=== PATIENT | female | born 1990 | race Caucasian/White ===

== ENCOUNTER 2017-08-31 11:21 | Emergency (ER) | payer OTHER, SELFPAY ==
[2017-08-31 11:28] VITALS: BP 156/103; PULSE 80; RESP 16; TEMP 37.4; O2SAT 98; BMI 40.7
[2017-08-31] MEDS: ONDANSETRON 4 MG/2 ML INJ IV (12:16)
[2017-08-31 12:24] LABS: Add Manual Diff / Slide Review NO; Basophils Percent Auto 1.1 % (0-2); Eosinophils Percent Auto 1.1 % (2-4); Hematocrit 40.2 % (36-46); Hemoglobin 14.2 g/dL (12.0-16.0); Lymphocytes Percent Auto 29.4 % (25-40); Mean Corpuscular HGB Conc 35.3 % (30-36); Mean Corpuscular Hemoglobin 29.5 PG (26-34); Mean Corpuscular Volume 83.5 fL (80-100); Monocytes Percent Auto 4.9 % (3-14); Neutrophils Absolute Auto 5000 /uL (3000-5900); Neutrophils Percent Auto 63.5 % (50-75); Platelet Count 272 X10^3/uL (150-400); Red Blood Cell Count 4.82 X10^6/uL (4.0-5.2); Red Cell Distribution Width 12.6 % (11.6-14.8); White Blood Cell Count 7.9 X10^3/uL (4.5-11.0)
[2017-08-31 12:28] LABS: Bacteria Urine Many (>30); Culture Indicated Urine Cult Not Indicated; Squamous Epithelial Cell Urine 10-30 /HPF
[2017-08-31 12:28] LABS: PTT Partial Thromboplastin Tim 27 SECONDS (26.4-36.2)
[2017-08-31 12:30] LABS: Alanine Aminotransferase 82 IU/L (9-52); Albumin 4.4 g/dL (3.5-5.0); Albumin Globulin Ratio 1.3 (1.0-2.8); Alkaline Phosphatase 84 U/L (38-126); Aspartate Aminotransferase 101 IU/L (14-36); BUN Creatinine Ratio 11.7 (6-22); Bilirubin Total 0.5 mg/dL (0.2-1.3); Calcium 9.5 mg/dL (8.4-10.2); Estimated Glomerular Filt Rate > 60.0 mL/min (>60); Globulin 3.5 g/dL (1.7-4.1); Glucose 117 mg/dL (70-100); INR 1.1 (0.9-1.3); Potassium 3.9 mmol/L (3.4-5.1); Prothrombin Time 11.8 SECONDS (10.1-12.7); Sodium 139 mmol/L (137-145); Total Protein 7.9 g/dL (6.3-8.2)
[2017-08-31 12:36] LABS: HEMOLYSIS < 15 (0-50); Lipase 180 U/L (23-300)
[2017-08-31 12:37] VITALS: BP 151/103; PULSE 68; RESP 17; O2SAT 97
--- NOTE | 2017-08-31 12:41 | ED.ABDPAIN ---
HPI - Abdominal Pain <Nicolasa Aguirre PA-C - Last Filed: 08/31/17 21:03> General Chief Complaint: Abdominal Pain Stated Complaint: LEFT SIDED BACK AND ABDOMINAL PAIN Time Seen by Provider: 08/31/17 11:45 Source: patient Mode of arrival: ambulatory Limitations: no limitations History of Present Illness HPI narrative: This 26-year-old female states that she has had left-sided back pain for about a week. She states that she has some chronic back pain after childbirth and thought this was similar, but saw her chiropractor and not better. She states that the pain started throbbing more today and seems to radiate into her left flank and abdominal area, like previous gallbladder attacks but on the left side. She states that pain waxes and wanes, might be worse moving from sit to supine or vice versa, cannot think of any other exacerbating or alleviating features. She has had nausea in the morning for the last few days, but today is more persistent. She states she has had poor appetite due to the nausea. She has not had any vomiting. She has not had any known fever, but has had some chills at home. She states that she also feels bloated and has some acid sensation in her stomach. She states that she has diarrhea after eating since her cholecystectomy. She states that last week she had 1 episode of some blood in the stools after it was painful to stool, but has not had any since this started. No mucus in the stools. She denies any hematuria or urinary symptoms. She denies any chest pain or dyspnea. She denies any recent medication changes, antibiotics, foreign travel or known exposures. She denies any possibility of , states she has an IUD in place and is compliant with OCP Related Data Previous Rx's Medication Instructions Recorded copper [ParaGard T 380A] 1 ea VAGINAL X1 #1 ea 09/23/16 sumatriptan succinate 50 mg PO SEE INSTRUCTIONS #18 tab 05/27/17 norethindrone (contraceptive) 0.35 mg PO QDAY #1 pac 08/03/17 [Ortho Micronor] cyclobenzaprine 10 mg PO Q8H PRN #10 tab 08/31/17 ondansetron [Zofran ODT] 4 mg PO Q6H PRN #6 tab 08/31/17 Allergies Allergy/AdvReac Type Severity Reaction Status Date / Time hydrocodone [HYDROCODONE] Allergy Severe EMESIS/LETH Verified 09/01/17 13:29 ARGY Review of Systems <Nicolasa Aguirre PA-C - Last Filed: 08/31/17 21:03> Review of Systems All systems reviewed & are unremarkable except as noted in HPI and below Exam <Nicolasa Aguirre PA-C - Last Filed: 08/31/17 21:03> Narrative Exam Narrative: GENERAL APPEARANCE: Patient sitting comfortably, in no distress. HEENT: PERRL, EOMI, conjunctiva pink, no scleral icterus NECK: Supple LUNGS: Clear to auscultation bilaterally. HEART: Rate and rhythm regular, normal S1 and S2, no S3 or S4. ABDOMEN: Soft, obese, nondistended, bowel sounds present x 4 quadrants, no masses palpable, no hepatosplenomegaly. She has no CVAT. She has moderate tenderness over the mid epigastrium left lower quadrant, more laterally, without guarding or rebound EXTREMITIES: No edema, no cyanosis MS: No point tenderness over spine or thoracolumbar musculature. Tender with moving from supine to sit DERMATOLOGIC: No jaundice or exanthem NEUROLOGIC: Alert and oriented with normal speech and coordination Course <Nicolasa Aguirre PA-C - Last Filed: 08/31/17 21:03> Hospital Course: Patient did not have any vomiting while here. She did have some improvement in pain and was moving more comfortably prior to discharge. She stated this was very tolerable. I spoke with her PCP and arranged close follow-up for tomorrow with repeat lab work prior. Patient agreed to return if acutely worsening again in the interim Orders Ordered: Discontinued Medications Al Hydrox/Mg Hydrox/Simethicone 20 ml/ Lidocaine HCl 15 ml 0 ml PO NOW ONE Stop: 08/31/17 12:55 Last Admin: 08/31/17 13:18 Dose: 35 ml Ketorolac Tromethamine (Toradol) 30 mg IV NOW ONE Stop: 08/31/17 12:55 Last Admin: 08/31/17 13:12 Dose: 30 mg Ondansetron HCl (Zofran) 4 mg IV NOW ONE Stop: 08/31/17 12:14 Last Admin: 08/31/17 12:16 Dose: 4 mg Last Vital Signs Temp 99.4 F 08/31/17 11:28 Pulse 74 08/31/17 14:31 Resp 18 08/31/17 14:31 BP 140/102 H 08/31/17 14:31 Pulse Ox 95 08/31/17 14:31 <Gustabo De Luna DO - Last Filed: 09/04/17 07:09> Orders Ordered: Discontinued Medications Al Hydrox/Mg Hydrox/Simethicone 20 ml/ Lidocaine HCl 15 ml 0 ml PO NOW ONE Stop: 08/31/17 12:55 Last Admin: 08/31/17 13:18 Dose: 35 ml Ketorolac Tromethamine (Toradol) 30 mg IV NOW ONE Stop: 08/31/17 12:55 Last Admin: 08/31/17 13:12 Dose: 30 mg Ondansetron HCl (Zofran) 4 mg IV NOW ONE Stop: 08/31/17 12:14 Last Admin: 08/31/17 12:16 Dose: 4 mg Last Vital Signs Temp 99.4 F 08/31/17 11:28 Pulse 74 08/31/17 14:31 Resp 18 08/31/17 14:31 BP 140/102 H 08/31/17 14:31 Pulse Ox 95 08/31/17 14:31 MDM - Abdominal Pain <Nicolasa Aguirre PA-C - Last Filed: 08/31/17 21:03> Lab Data Attestation: I reviewed the patient's lab results. Result diagrams: 08/31/17 12:11 08/31/17 12:11 Lab Results 08/31/17 08/31/17 08/31/17 Range/Units 12:11 12:11 12:11 WBC 7.9 (4.5-11.0) X10^3/uL RBC 4.82 (4.0-5.2) X10^6/uL Hgb 14.2 (12.0-16.0) g/dL Hct 40.2 (36-46) % MCV 83.5 (80-100) fL MCH 29.5 (26-34) PG MCHC 35.3 (30-36) % RDW 12.6 (11.6-14.8) % Plt Count 272 (150-400) X10^3/uL Neut % (Auto) 63.5 (50-75) % Lymph % (Auto) 29.4 (25-40) % Randolph % (Auto) 4.9 (3-14) % Eos % (Auto) 1.1 L (2-4) % Baso % (Auto) 1.1 (0-2) % Neut # (Auto) 5000 (8849-9311) /uL PT 11.8 (10.1-12.7) SECONDS INR 1.1 (0.9-1.3) APTT 27 (26.4-36.2) SECONDS Sodium 139 (137-145) mmol/L Potassium 3.9 (3.4-5.1) mmol/L Chloride 102.0 (98-107) mmol/L Carbon Dioxide 24.0 (22-32) mmol/L BUN 7.0 (7-17) mg/dL Creatinine 0.60 (0.52-1.04) mg/dL Estimated GFR > 60.0 (>60) mL/min BUN/Creatinine Ratio 11.7 (6-22) Glucose 117 H (70-100) mg/dL Calcium 9.5 (8.4-10.2) mg/dL Total Bilirubin 0.5 (0.2-1.3) mg/dL AST 101 H (14-36) IU/L ALT 82 H (9-52) IU/L Alkaline Phosphatase 84 (38-126) U/L Total Protein 7.9 (6.3-8.2) g/dL Albumin 4.4 (3.5-5.0) g/dL Globulin 3.5 (1.7-4.1) g/dL Albumin/Globulin Ratio 1.3 (1.0-2.8) Lipase 180 (23-300) U/L Ur Squamous Epith Cells Urine Bacteria (None) Ur Culture Indicated? Micro UA Comment 08/31/17 Range/Units 12:18 WBC (4.5-11.0) X10^3/uL RBC (4.0-5.2) X10^6/uL Hgb (12.0-16.0) g/dL Hct (36-46) % MCV (80-100) fL MCH (26-34) PG MCHC (30-36) % RDW (11.6-14.8) % Plt Count (150-400) X10^3/uL Neut % (Auto) (50-75) % Lymph % (Auto) (25-40) % Randolph % (Auto) (3-14) % Eos % (Auto) (2-4) % Baso % (Auto) (0-2) % Neut # (Auto) (9484-9705) /uL PT (10.1-12.7) SECONDS INR (0.9-1.3) APTT (26.4-36.2) SECONDS Sodium (137-145) mmol/L Potassium (3.4-5.1) mmol/L Chloride (98-107) mmol/L Carbon Dioxide (22-32) mmol/L BUN (7-17) mg/dL Creatinine (0.52-1.04) mg/dL Estimated GFR (>60) mL/min BUN/Creatinine Ratio (6-22) Glucose (70-100) mg/dL Calcium (8.4-10.2) mg/dL Total Bilirubin (0.2-1.3) mg/dL AST (14-36) IU/L ALT (9-52) IU/L Alkaline Phosphatase (38-126) U/L Total Protein (6.3-8.2) g/dL Albumin (3.5-5.0) g/dL Globulin (1.7-4.1) g/dL Albumin/Globulin Ratio (1.0-2.8) Lipase (23-300) U/L Ur Squamous Epith Cells 10-30 /hpf H Urine Bacteria Many (>30) H (None) Ur Culture Indicated? Cult not indicated Micro UA Comment Not Reportable Imaging Data CT scan - abdomen: Radiologist's impression: View Report History [address] [address] [address] Scan Report Signed Patient: Sherine Wolf MR#: [id number] : 1990 Acct:[id number] Age/Sex: 26 / F Date of Service: 08/31/17 Loc: ED Accession Number: [id number] Procedure: CT kidney ureter bladder (KUB) Ordering Provider: Nicolasa Aguirre P.A-C PROCEDURE: CT KIDNEY URETER BLADDER (KUB) INDICATIONS: L. flank, LQ pain TECHNIQUE: Noncontrast 5 mm thick sections acquired from the diaphragms to the symphysis. 5 mm thick coronal and sagittal reformats were then performed. For radiation dose reduction, the following was used: automated exposure control, adjustment of mA and/or kV according to patient size. COMPARISON: [facility], CT, ABDOMEN/PELVIS WITH CONTRAST, 02/24/2017, 11:54. FINDINGS: Image quality: Excellent. Lung bases: Lung bases are clear. Heart size is normal. Urinary system: Both kidneys are normal in size. No kidney stones. No hydronephrosis or perinephric fat stranding. Both ureters appear non-dilated throughout their expected courses. Bladder wall thickness is normal; no calcified bladder stones. Other solid organs: Liver is enlarged, and demonstrates diffusely decreased density, indicating fatty infiltration. An intrauterine device is present.. Gallbladder is surgically absent. Pancreas is normal in contours. Spleen is normal in size. No adrenal nodules. Peritoneum and bowel: Unenhanced bowel loops demonstrate normal wall thickness and caliber. No free fluid or air. Appendectomy clips are present. Nodes and vessels: No retroperitoneal or mesenteric adenopathy by size criteria. Aorta and inferior vena cava are normal in caliber. Abdominal wall: No ventral hernias. Pelvis: No free pelvic fluid. No inguinal hernias or adenopathy. Bones: No suspicious bony lesions. No vertebral body compression fractures. IMPRESSION: 1. No evidence of urinary tract calcification, nor obstruction. 2. No explanation for left flank, nor left lower quadrant pain. 3. Hepatic steatosis. Dictated by: Juanis Carmona M.D. on 08/31/2017 at 13:33 Approved by: Juanis Carmona M.D. on 08/31/2017 at 13:36 <Gustabo De Luna DO - Last Filed: 09/04/17 07:09> Lab Data Lab Results 08/31/17 08/31/17 08/31/17 Range/Units 12:11 12:11 12:11 WBC 7.9 (4.5-11.0) X10^3/uL RBC 4.82 (4.0-5.2) X10^6/uL Hgb 14.2 (12.0-16.0) g/dL Hct 40.2 (36-46) % MCV 83.5 (80-100) fL MCH 29.5 (26-34) PG MCHC 35.3 (30-36) % RDW 12.6 (11.6-14.8) % Plt Count 272 (150-400) X10^3/uL Neut % (Auto) 63.5 (50-75) % Lymph % (Auto) 29.4 (25-40) % Randolph % (Auto) 4.9 (3-14) % Eos % (Auto) 1.1 L (2-4) % Baso % (Auto) 1.1 (0-2) % Neut # (Auto) 5000 (2368-0112) /uL PT 11.8 (10.1-12.7) SECONDS INR 1.1 (0.9-1.3) APTT 27 (26.4-36.2) SECONDS Sodium 139 (137-145) mmol/L Potassium 3.9 (3.4-5.1) mmol/L Chloride 102.0 (98-107) mmol/L Carbon Dioxide 24.0 (22-32) mmol/L BUN 7.0 (7-17) mg/dL Creatinine 0.60 (0.52-1.04) mg/dL Estimated GFR > 60.0 (>60) mL/min BUN/Creatinine Ratio 11.7 (6-22) Glucose 117 H (70-100) mg/dL Calcium 9.5 (8.4-10.2) mg/dL Total Bilirubin 0.5 (0.2-1.3) mg/dL AST 101 H (14-36) IU/L ALT 82 H (9-52) IU/L Alkaline Phosphatase 84 (38-126) U/L Total Protein 7.9 (6.3-8.2) g/dL Albumin 4.4 (3.5-5.0) g/dL Globulin 3.5 (1.7-4.1) g/dL Albumin/Globulin Ratio 1.3 (1.0-2.8) Lipase 180 (23-300) U/L Ur Squamous Epith Cells Urine Bacteria (None) Ur Culture Indicated? Micro UA Comment 08/31/17 Range/Units 12:18 WBC (4.5-11.0) X10^3/uL RBC (4.0-5.2) X10^6/uL Hgb (12.0-16.0) g/dL Hct (36-46) % MCV (80-100) fL MCH (26-34) PG MCHC (30-36) % RDW (11.6-14.8) % Plt Count (150-400) X10^3/uL Neut % (Auto) (50-75) % Lymph % (Auto) (25-40) % Randolph % (Auto) (3-14) % Eos % (Auto) (2-4) % Baso % (Auto) (0-2) % Neut # (Auto) (0160-1072) /uL PT (10.1-12.7) SECONDS INR (0.9-1.3) APTT (26.4-36.2) SECONDS Sodium (137-145) mmol/L Potassium (3.4-5.1) mmol/L Chloride (98-107) mmol/L Carbon Dioxide (22-32) mmol/L BUN (7-17) mg/dL Creatinine (0.52-1.04) mg/dL Estimated GFR (>60) mL/min BUN/Creatinine Ratio (6-22) Glucose (70-100) mg/dL Calcium (8.4-10.2) mg/dL Total Bilirubin (0.2-1.3) mg/dL AST (14-36) IU/L ALT (9-52) IU/L Alkaline Phosphatase (38-126) U/L Total Protein (6.3-8.2) g/dL Albumin (3.5-5.0) g/dL Globulin (1.7-4.1) g/dL Albumin/Globulin Ratio (1.0-2.8) Lipase (23-300) U/L Ur Squamous Epith Cells 10-30 /hpf H Urine Bacteria Many (>30) H (None) Ur Culture Indicated? Cult not indicated Micro UA Comment Not Reportable Discharge Plan Departure Patient Disposition: Home, Self-Care Clinical Impression: Acute left flank pain, Abdominal pain, Nausea Discharge Date/Time: 08/31/17 14:33 Interventions: ED Discharge Assessment Last Done: 08/31/17 14:31 Instructions: DI for Abdominal Pain-Adult Activity Restrictions/Additional Instructions: Is unclear whether your pain is generated from your back, your abdomen or both. Since you are feeling a little bit better and does not appear that there is a surgical issue based on your testing today, it is reasonable for you to monitor at home, however as we talked about you should return if any acutely worsening symptoms. It is important to monitor abdominal pain closely and you should follow up at your PCP office tomorrow. They have asked that you check into the lab at 1 hour early tomorrow for repeat labwork, then be at the clinic at 1:30 for your appointment I have given you a medication to try for muscle spasms since your pain waxes and wanes. Remember that this can make you sleepy and not to drive. you can also use over the counter NSAIDs, such as aleve 1 tab twice daily. For your nausea, bloating, and heartburn, try to eat very small amounts of food more frequently, i.e. yogurt, a piece of fruit, a few crackers every couple of hours rather than eating large meals. Drink plenty of clear fluids. You can use a liquid antacid such as Maalox or Mylanta as needed. I have given you a prescription for a little bit of the antinausea medicine you had in the IV as well today in case you need it tonight Prescriptions: New cyclobenzaprine 10 mg tablet 10 mg PO Q8H PRN (Reason: muscle spasm) Qty: 10 RF: 0 ondansetron [Zofran ODT] 4 mg tablet,disintegrating 4 mg PO Q6H PRN (Reason: nausea) Qty: 6 RF: 0 No Action copper [ParaGard T 380A] 1 EACH intrauterine device 1 ea Vaginal X1 Qty: 1 RF: 0 sumatriptan succinate 50 MG tablet 50 mg PO SEE INSTRUCTIONS Qty: 18 RF: 3 norethindrone (contraceptive) [Ortho Micronor] 0.35 MG tablet 0.35 mg PO QDAY Qty: 1 RF: 6 Referrals: Devorah Galarza MD [Primary Care Provider] - <Gustabo De Luna DO - Last Filed: 09/04/17 07:09> Cosign ED Attending Guillermoature Attestation: I was available for consultation during this patient's emergency department encounter
--- NOTE | 2017-08-31 13:06 | ED_ITS ---
HPI - Abdominal Pain <Nicolasa Aguirre PA-C - Last Filed: 08/31/17 21:03> General Chief Complaint: Abdominal Pain Stated Complaint: LEFT SIDED BACK AND ABDOMINAL PAIN Time Seen by Provider: 08/31/17 11:45 Source: patient Mode of arrival: ambulatory Limitations: no limitations History of Present Illness HPI narrative: This 26-year-old female states that she has had left-sided back pain for about a week. She states that she has some chronic back pain after childbirth and thought this was similar, but saw her chiropractor and not better. She states that the pain started throbbing more today and seems to radiate into her left flank and abdominal area, like previous gallbladder attacks but on the left side. She states that pain waxes and wanes, might be worse moving from sit to supine or vice versa, cannot think of any other exacerbating or alleviating features. She has had nausea in the morning for the last few days, but today is more persistent. She states she has had poor appetite due to the nausea. She has not had any vomiting. She has not had any known fever, but has had some chills at home. She states that she also feels bloated and has some acid sensation in her stomach. She states that she has diarrhea after eating since her cholecystectomy. She states that last week she had 1 episode of some blood in the stools after it was painful to stool, but has not had any since this started. No mucus in the stools. She denies any hematuria or urinary symptoms. She denies any chest pain or dyspnea. She denies any recent medication changes, antibiotics, foreign travel or known exposures. She denies any possibility of , states she has an IUD in place and is compliant with OCP Related Data Previous Rx's Medication Instructions Recorded copper [ParaGard T 380A] 1 ea VAGINAL X1 #1 ea 09/23/16 sumatriptan succinate 50 mg PO SEE INSTRUCTIONS #18 tab 05/27/17 norethindrone (contraceptive) 0.35 mg PO QDAY #1 pac 08/03/17 [Ortho Micronor] cyclobenzaprine 10 mg PO Q8H PRN #10 tab 08/31/17 ondansetron [Zofran ODT] 4 mg PO Q6H PRN #6 tab 08/31/17 Allergies Allergy/AdvReac Type Severity Reaction Status Date / Time hydrocodone [HYDROCODONE] Allergy Severe EMESIS/LETH Verified 09/01/17 13:29 ARGY Review of Systems <Nicolasa Aguirre PA-C - Last Filed: 08/31/17 21:03> Review of Systems All systems reviewed & are unremarkable except as noted in HPI and below Exam <Nicolasa Aguirre PA-C - Last Filed: 08/31/17 21:03> Narrative Exam Narrative: GENERAL APPEARANCE: Patient sitting comfortably, in no distress. HEENT: PERRL, EOMI, conjunctiva pink, no scleral icterus NECK: Supple LUNGS: Clear to auscultation bilaterally. HEART: Rate and rhythm regular, normal S1 and S2, no S3 or S4. ABDOMEN: Soft, obese, nondistended, bowel sounds present x 4 quadrants, no masses palpable, no hepatosplenomegaly. She has no CVAT. She has moderate tenderness over the mid epigastrium left lower quadrant, more laterally, without guarding or rebound EXTREMITIES: No edema, no cyanosis MS: No point tenderness over spine or thoracolumbar musculature. Tender with moving from supine to sit DERMATOLOGIC: No jaundice or exanthem NEUROLOGIC: Alert and oriented with normal speech and coordination Course <Nicolasa Aguirre PA-C - Last Filed: 08/31/17 21:03> Hospital Course: Patient did not have any vomiting while here. She did have some improvement in pain and was moving more comfortably prior to discharge. She stated this was very tolerable. I spoke with her PCP and arranged close follow-up for tomorrow with repeat lab work prior. Patient agreed to return if acutely worsening again in the interim Orders Ordered: Discontinued Medications Al Hydrox/Mg Hydrox/Simethicone 20 ml/ Lidocaine HCl 15 ml 0 ml PO NOW ONE Stop: 08/31/17 12:55 Last Admin: 08/31/17 13:18 Dose: 35 ml Ketorolac Tromethamine (Toradol) 30 mg IV NOW ONE Stop: 08/31/17 12:55 Last Admin: 08/31/17 13:12 Dose: 30 mg Ondansetron HCl (Zofran) 4 mg IV NOW ONE Stop: 08/31/17 12:14 Last Admin: 08/31/17 12:16 Dose: 4 mg Last Vital Signs Temp 99.4 F 08/31/17 11:28 Pulse 74 08/31/17 14:31 Resp 18 08/31/17 14:31 BP 140/102 H 08/31/17 14:31 Pulse Ox 95 08/31/17 14:31 <Gustabo De Luna DO - Last Filed: 09/04/17 07:09> Orders Ordered: Discontinued Medications Al Hydrox/Mg Hydrox/Simethicone 20 ml/ Lidocaine HCl 15 ml 0 ml PO NOW ONE Stop: 08/31/17 12:55 Last Admin: 08/31/17 13:18 Dose: 35 ml Ketorolac Tromethamine (Toradol) 30 mg IV NOW ONE Stop: 08/31/17 12:55 Last Admin: 08/31/17 13:12 Dose: 30 mg Ondansetron HCl (Zofran) 4 mg IV NOW ONE Stop: 08/31/17 12:14 Last Admin: 08/31/17 12:16 Dose: 4 mg Last Vital Signs Temp 99.4 F 08/31/17 11:28 Pulse 74 08/31/17 14:31 Resp 18 08/31/17 14:31 BP 140/102 H 08/31/17 14:31 Pulse Ox 95 08/31/17 14:31 MDM - Abdominal Pain <Nicolasa Aguirre PA-C - Last Filed: 08/31/17 21:03> Lab Data Attestation: I reviewed the patient's lab results. Result diagrams: 08/31/17 12:11 08/31/17 12:11 Lab Results 08/31/17 08/31/17 08/31/17 Range/Units 12:11 12:11 12:11 WBC 7.9 (4.5-11.0) X10^3/uL RBC 4.82 (4.0-5.2) X10^6/uL Hgb 14.2 (12.0-16.0) g/dL Hct 40.2 (36-46) % MCV 83.5 (80-100) fL MCH 29.5 (26-34) PG MCHC 35.3 (30-36) % RDW 12.6 (11.6-14.8) % Plt Count 272 (150-400) X10^3/uL Neut % (Auto) 63.5 (50-75) % Lymph % (Auto) 29.4 (25-40) % Carson % (Auto) 4.9 (3-14) % Eos % (Auto) 1.1 L (2-4) % Baso % (Auto) 1.1 (0-2) % Neut # (Auto) 5000 (1979-8730) /uL PT 11.8 (10.1-12.7) SECONDS INR 1.1 (0.9-1.3) APTT 27 (26.4-36.2) SECONDS Sodium 139 (137-145) mmol/L Potassium 3.9 (3.4-5.1) mmol/L Chloride 102.0 (98-107) mmol/L Carbon Dioxide 24.0 (22-32) mmol/L BUN 7.0 (7-17) mg/dL Creatinine 0.60 (0.52-1.04) mg/dL Estimated GFR > 60.0 (>60) mL/min BUN/Creatinine Ratio 11.7 (6-22) Glucose 117 H (70-100) mg/dL Calcium 9.5 (8.4-10.2) mg/dL Total Bilirubin 0.5 (0.2-1.3) mg/dL AST 101 H (14-36) IU/L ALT 82 H (9-52) IU/L Alkaline Phosphatase 84 (38-126) U/L Total Protein 7.9 (6.3-8.2) g/dL Albumin 4.4 (3.5-5.0) g/dL Globulin 3.5 (1.7-4.1) g/dL Albumin/Globulin Ratio 1.3 (1.0-2.8) Lipase 180 (23-300) U/L Ur Squamous Epith Cells Urine Bacteria (None) Ur Culture Indicated? Micro UA Comment 08/31/17 Range/Units 12:18 WBC (4.5-11.0) X10^3/uL RBC (4.0-5.2) X10^6/uL Hgb (12.0-16.0) g/dL Hct (36-46) % MCV (80-100) fL MCH (26-34) PG MCHC (30-36) % RDW (11.6-14.8) % Plt Count (150-400) X10^3/uL Neut % (Auto) (50-75) % Lymph % (Auto) (25-40) % Carson % (Auto) (3-14) % Eos % (Auto) (2-4) % Baso % (Auto) (0-2) % Neut # (Auto) (3638-1706) /uL PT (10.1-12.7) SECONDS INR (0.9-1.3) APTT (26.4-36.2) SECONDS Sodium (137-145) mmol/L Potassium (3.4-5.1) mmol/L Chloride (98-107) mmol/L Carbon Dioxide (22-32) mmol/L BUN (7-17) mg/dL Creatinine (0.52-1.04) mg/dL Estimated GFR (>60) mL/min BUN/Creatinine Ratio (6-22) Glucose (70-100) mg/dL Calcium (8.4-10.2) mg/dL Total Bilirubin (0.2-1.3) mg/dL AST (14-36) IU/L ALT (9-52) IU/L Alkaline Phosphatase (38-126) U/L Total Protein (6.3-8.2) g/dL Albumin (3.5-5.0) g/dL Globulin (1.7-4.1) g/dL Albumin/Globulin Ratio (1.0-2.8) Lipase (23-300) U/L Ur Squamous Epith Cells 10-30 /hpf H Urine Bacteria Many (>30) H (None) Ur Culture Indicated? Cult not indicated Micro UA Comment Not Reportable Imaging Data CT scan - abdomen: Radiologist's impression: View Report History [address] [address] [address] Scan Report Signed Patient: Sherine Wolf MR#: [id number] : 1990 Acct:[id number] Age/Sex: 26 / F Date of Service: 08/31/17 Loc: ED Accession Number: [id number] Procedure: CT kidney ureter bladder (KUB) Ordering Provider: Nicolasa Aguirre P.A-C PROCEDURE: CT KIDNEY URETER BLADDER (KUB) INDICATIONS: L. flank, LQ pain TECHNIQUE: Noncontrast 5 mm thick sections acquired from the diaphragms to the symphysis. 5 mm thick coronal and sagittal reformats were then performed. For radiation dose reduction, the following was used: automated exposure control, adjustment of mA and/or kV according to patient size. COMPARISON: [facility], CT, ABDOMEN/PELVIS WITH CONTRAST, 02/24/2017, 11: 54. FINDINGS: Image quality: Excellent. Lung bases: Lung bases are clear. Heart size is normal. Urinary system: Both kidneys are normal in size. No kidney stones. No hydronephrosis or perinephric fat stranding. Both ureters appear non-dilated throughout their expected courses. Bladder wall thickness is normal; no calcified bladder stones. Other solid organs: Liver is enlarged, and demonstrates diffusely decreased density, indicating fatty infiltration. An intrauterine device is present.. Gallbladder is surgically absent. Pancreas is normal in contours. Spleen is normal in size. No adrenal nodules. Peritoneum and bowel: Unenhanced bowel loops demonstrate normal wall thickness and caliber. No free fluid or air. Appendectomy clips are present. Nodes and vessels: No retroperitoneal or mesenteric adenopathy by size criteria. Aorta and inferior vena cava are normal in caliber. Abdominal wall: No ventral hernias. Pelvis: No free pelvic fluid. No inguinal hernias or adenopathy. Bones: No suspicious bony lesions. No vertebral body compression fractures. IMPRESSION: 1. No evidence of urinary tract calcification, nor obstruction. 2. No explanation for left flank, nor left lower quadrant pain. 3. Hepatic steatosis. Dictated by: Juanis Carmona M.D. on 08/31/2017 at 13:33 Approved by: Juanis Carmona M.D. on 08/31/2017 at 13:36 <Gustabo De Luna DO - Last Filed: 09/04/17 07:09> Lab Data Lab Results 08/31/17 08/31/17 08/31/17 Range/Units 12:11 12:11 12:11 WBC 7.9 (4.5-11.0) X10^3/uL RBC 4.82 (4.0-5.2) X10^6/uL Hgb 14.2 (12.0-16.0) g/dL Hct 40.2 (36-46) % MCV 83.5 (80-100) fL MCH 29.5 (26-34) PG MCHC 35.3 (30-36) % RDW 12.6 (11.6-14.8) % Plt Count 272 (150-400) X10^3/uL Neut % (Auto) 63.5 (50-75) % Lymph % (Auto) 29.4 (25-40) % Carson % (Auto) 4.9 (3-14) % Eos % (Auto) 1.1 L (2-4) % Baso % (Auto) 1.1 (0-2) % Neut # (Auto) 5000 (2859-9059) /uL PT 11.8 (10.1-12.7) SECONDS INR 1.1 (0.9-1.3) APTT 27 (26.4-36.2) SECONDS Sodium 139 (137-145) mmol/L Potassium 3.9 (3.4-5.1) mmol/L Chloride 102.0 (98-107) mmol/L Carbon Dioxide 24.0 (22-32) mmol/L BUN 7.0 (7-17) mg/dL Creatinine 0.60 (0.52-1.04) mg/dL Estimated GFR > 60.0 (>60) mL/min BUN/Creatinine Ratio 11.7 (6-22) Glucose 117 H (70-100) mg/dL Calcium 9.5 (8.4-10.2) mg/dL Total Bilirubin 0.5 (0.2-1.3) mg/dL AST 101 H (14-36) IU/L ALT 82 H (9-52) IU/L Alkaline Phosphatase 84 (38-126) U/L Total Protein 7.9 (6.3-8.2) g/dL Albumin 4.4 (3.5-5.0) g/dL Globulin 3.5 (1.7-4.1) g/dL Albumin/Globulin Ratio 1.3 (1.0-2.8) Lipase 180 (23-300) U/L Ur Squamous Epith Cells Urine Bacteria (None) Ur Culture Indicated? Micro UA Comment 08/31/17 Range/Units 12:18 WBC (4.5-11.0) X10^3/uL RBC (4.0-5.2) X10^6/uL Hgb (12.0-16.0) g/dL Hct (36-46) % MCV (80-100) fL MCH (26-34) PG MCHC (30-36) % RDW (11.6-14.8) % Plt Count (150-400) X10^3/uL Neut % (Auto) (50-75) % Lymph % (Auto) (25-40) % Carson % (Auto) (3-14) % Eos % (Auto) (2-4) % Baso % (Auto) (0-2) % Neut # (Auto) (2901-7000) /uL PT (10.1-12.7) SECONDS INR (0.9-1.3) APTT (26.4-36.2) SECONDS Sodium (137-145) mmol/L Potassium (3.4-5.1) mmol/L Chloride (98-107) mmol/L Carbon Dioxide (22-32) mmol/L BUN (7-17) mg/dL Creatinine (0.52-1.04) mg/dL Estimated GFR (>60) mL/min BUN/Creatinine Ratio (6-22) Glucose (70-100) mg/dL Calcium (8.4-10.2) mg/dL Total Bilirubin (0.2-1.3) mg/dL AST (14-36) IU/L ALT (9-52) IU/L Alkaline Phosphatase (38-126) U/L Total Protein (6.3-8.2) g/dL Albumin (3.5-5.0) g/dL Globulin (1.7-4.1) g/dL Albumin/Globulin Ratio (1.0-2.8) Lipase (23-300) U/L Ur Squamous Epith Cells 10-30 /hpf H Urine Bacteria Many (>30) H (None) Ur Culture Indicated? Cult not indicated Micro UA Comment Not Reportable Discharge Plan Departure Patient Disposition: Home, Self-Care Clinical Impression: Acute left flank pain, Abdominal pain, Nausea Discharge Date/Time: 08/31/17 14:33 Interventions: ED Discharge Assessment Last Done: 08/31/17 14:31 Instructions: DI for Abdominal Pain-Adult Activity Restrictions/Additional Instructions: Is unclear whether your pain is generated from your back, your abdomen or both. Since you are feeling a little bit better and does not appear that there is a surgical issue based on your testing today, it is reasonable for you to monitor at home, however as we talked about you should return if any acutely worsening symptoms. It is important to monitor abdominal pain closely and you should follow up at your PCP office tomorrow. They have asked that you check into the lab at 1 hour early tomorrow for repeat labwork, then be at the clinic at 1:30 for your appointment I have given you a medication to try for muscle spasms since your pain waxes and wanes. Remember that this can make you sleepy and not to drive. you can also use over the counter NSAIDs, such as aleve 1 tab twice daily. For your nausea, bloating, and heartburn, try to eat very small amounts of food more frequently, i.e. yogurt, a piece of fruit, a few crackers every couple of hours rather than eating large meals. Drink plenty of clear fluids. You can use a liquid antacid such as Maalox or Mylanta as needed. I have given you a prescription for a little bit of the antinausea medicine you had in the IV as well today in case you need it tonight Prescriptions: New cyclobenzaprine 10 mg tablet 10 mg PO Q8H PRN (Reason: muscle spasm) Qty: 10 RF: 0 ondansetron [Zofran ODT] 4 mg tablet,disintegrating 4 mg PO Q6H PRN (Reason: nausea) Qty: 6 RF: 0 No Action copper [ParaGard T 380A] 1 EACH intrauterine device 1 ea Vaginal X1 Qty: 1 RF: 0 sumatriptan succinate 50 MG tablet 50 mg PO SEE INSTRUCTIONS Qty: 18 RF: 3 norethindrone (contraceptive) [Ortho Micronor] 0.35 MG tablet 0.35 mg PO QDAY Qty: 1 RF: 6 Referrals: Devorah Galarza MD [Primary Care Provider] - <Gustabo De Luna DO - Last Filed: 09/04/17 07:09> Cosign ED Attending Guillermoature Attestation: I was available for consultation during this patient's emergency department encounter
[2017-08-31] MEDS: KETOROLAC 60 MG/2 ML VIAL 30 MG IV (13:12)
[2017-08-31] MEDS: MAG HYDROX/ALUMINUM/SIMETH SUS 20 ML, LIDOCAINE VISCOUS 2% 15 ML PO (13:18)
--- NOTE | 2017-08-31 13:32 | DI.CT.S_ITS ---
PROCEDURE: CT KIDNEY URETER BLADDER (KUB) INDICATIONS: L. flank, LQ pain TECHNIQUE: Noncontrast 5 mm thick sections acquired from the diaphragms to the symphysis. 5 mm thick coronal and sagittal reformats were then performed. For radiation dose reduction, the following was used: automated exposure control, adjustment of mA and/or kV according to patient size. COMPARISON: [facility], CT, ABDOMEN/PELVIS WITH CONTRAST, 02/24/2017, 11:54. FINDINGS: Image quality: Excellent. Lung bases: Lung bases are clear. Heart size is normal. Urinary system: Both kidneys are normal in size. No kidney stones. No hydronephrosis or perinephric fat stranding. Both ureters appear non-dilated throughout their expected courses. Bladder wall thickness is normal; no calcified bladder stones. Other solid organs: Liver is enlarged, and demonstrates diffusely decreased density, indicating fatty infiltration. An intrauterine device is present.. Gallbladder is surgically absent. Pancreas is normal in contours. Spleen is normal in size. No adrenal nodules. Peritoneum and bowel: Unenhanced bowel loops demonstrate normal wall thickness and caliber. No free fluid or air. Appendectomy clips are present. Nodes and vessels: No retroperitoneal or mesenteric adenopathy by size criteria. Aorta and inferior vena cava are normal in caliber. Abdominal wall: No ventral hernias. Pelvis: No free pelvic fluid. No inguinal hernias or adenopathy. Bones: No suspicious bony lesions. No vertebral body compression fractures. IMPRESSION: 1. No evidence of urinary tract calcification, nor obstruction. 2. No explanation for left flank, nor left lower quadrant pain. 3. Hepatic steatosis. Dictated by: Juanis Carmona M.D. on 08/31/2017 at 13:33 Approved by: Juanis Carmona M.D. on 08/31/2017 at 13:36
[2017-08-31 13:46] VITALS: BP 159/100; PULSE 72; RESP 15; O2SAT 99
[2017-08-31 14:31] VITALS: BP 140/102; PULSE 74; RESP 18; O2SAT 95
== END 2017-08-31 14:33 | disposition home or self-care (01) ==
PROVIDERS: Emergency Medicine; Emergency Provider Internal Medicine; PCP Family Medicine
DX: R10.9 Unspecified abdominal pain (principal); R11.0 Nausea
CPT/HCPCS: 36591; 74176; 80053; 81003; 81015; 81025; 83690; 85025; 85610; 85730; 96374; 96375; 99282; 99284; J1885; J2405

== ENCOUNTER → 2017-09-01 12:37 | Outpatient (CLI) | payer OTHER, SELFPAY ==
[2017-09-01 13:18] LABS: Alanine Aminotransferase 81 IU/L (9-52); Albumin 4.2 g/dL (3.5-5.0); Albumin Globulin Ratio 1.3 (1.0-2.8); Alkaline Phosphatase 75 U/L (38-126); Aspartate Aminotransferase 77 IU/L (14-36); BUN Creatinine Ratio 14.3 (6-22); Bilirubin Total 0.4 mg/dL (0.2-1.3); Calcium 9.4 mg/dL (8.4-10.2); Estimated Glomerular Filt Rate > 60.0 mL/min (>60); Globulin 3.3 g/dL (1.7-4.1); Glucose 94 mg/dL (70-100); HEMOLYSIS < 15 (0-50); Sodium 139 mmol/L (137-145); Total Protein 7.5 g/dL (6.3-8.2)
== END ==
PROVIDERS: PCP Family Medicine; Visit Provider Family Medicine
DX: R74.8 Abnormal levels of other serum enzymes (principal)
CPT/HCPCS: 36415; 80053

== ENCOUNTER → 2017-09-14 10:02 | Outpatient (CLI) | payer OTHER, SELFPAY ==
[2017-09-14 11:39] LABS: Alanine Aminotransferase 168 IU/L (9-52); Albumin 4.3 g/dL (3.5-5.0); Albumin Globulin Ratio 1.2 (1.0-2.8); Alkaline Phosphatase 87 U/L (38-126); Aspartate Aminotransferase 222 IU/L (14-36); BUN Creatinine Ratio 11.4 (6-22); Bilirubin Total 0.6 mg/dL (0.2-1.3); Blood Urea Nitrogen 8 mg/dL (7-17); Calcium 9.3 mg/dL (8.4-10.2); Carbon Dioxide 25 mmol/L (22-32); Chloride 101 mmol/L (98-107); Cholesterol 244 mg/dL (140-199); Estimated Glomerular Filt Rate > 60.0 mL/min (>60); Globulin 3.6 g/dL (1.7-4.1); Glucose 89 mg/dL (70-100); HDL Cholesterol 54 mg/dL (40-60); HEMOLYSIS < 15 (0-50); LDL Cholesterol Calculated 166 mg/dL (<100); Potassium 4.1 mmol/L (3.4-5.1); Sodium 139 mmol/L (137-145); Total Protein 7.9 g/dL (6.3-8.2); Triglycerides 120 mg/dL (35-150)
[2017-09-14 16:04] LABS: Creatinine Urine Random 201.2 mg/dL
[2017-09-14 16:11] LABS: Microalbumi Creatinin Ratio Ur 9.9 ug/mg CR (<30)
== END ==
PROVIDERS: PCP Family Medicine; Visit Provider Family Medicine
DX: R74.8 Abnormal levels of other serum enzymes (principal); I10 Essential (primary) hypertension
CPT/HCPCS: 36415; 80053; 80061; 82043; 82570

== ENCOUNTER → 2017-09-19 08:23 | Outpatient (CLI) | payer OTHER, SELFPAY ==
--- NOTE | 2017-09-19 08:25 | DI.ECHO.S_ITS ---
[place] +---------+ [facility] +---------+ : : [address] : : : : [id number] : : : : Phone: [phone] Echocardiogram Report + + :Name: WILMA ALFARO Study Date: 09/19/2017 Height: 63 in : :[facility] Weight: 221 lb : : Gender: Female BSA: 2.0 m2 : :: 1990 Age: 26 yrs BP: 128/82 mmHg: :Reason For Study: Hypertension/Murmur : : Performed By: Mare Muñiz : :Referring: ANITRA RASCON : + + Interpretation Summary 1. Normal left ventricular size with upper limits of normal wall thickness and an estimated EF of 55 to 60% 2. Grossly normal right ventricular size with normal systolic function. 3. No evidence for significant valvular pathology There is no old study available for comparison Procedure: A two-dimensional transthoracic echocardiogram with color flow and Doppler was performed. The study quality was technically adequate. Most of the acoustic windows were suboptimal, but the best imaging was obtained from the parasternal window. There is no prior echocardiogram noted for this patient. The patient was in normal sinus rhythm during the exam. Left Ventricle: The left ventricle is normal in size. Left ventricular wall thickness is borderline increased. Mildly elevated LV outflow tract velocities. The ejection fraction is estimated to be 55-60%. Endocardial definition is not optimal to assess focal wall motion. Right Ventricle: The right ventricle is grossly normal size. The right ventricular systolic function is normal. Atria: The left atrium grossly appears normal in size. The right atrium grossly appears normal in size. Mitral Valve: Leaflets appear thin with normal excursion. There is trace mitral regurgitation. Aortic Valve: The aortic valve is trileaflet. The aortic valve opens well. No aortic regurgitation is present. Tricuspid Valve: The tricuspid valve leaflets are thin and pliable. There is a trace or physiologic amount of tricuspid regurgitation. Pulmonary artery pressures cannot be estimated because of the lack of a measurable TR jet velocity. Pulmonic Valve: The pulmonic valve is not well seen, but is grossly normal. There is a trace or physiologic amount of pulmonic regurgitation. Great Vessels: The aortic root is normal size. The ascending aorta is normal in size. The inferior vena cava was not well visualized. Pericardium/ Pleura There is a trivial pericardial effusion noted. There is no pleural effusion. MMode/2D Measurements & Calculations LVIDd: 4.5 cm LVOT diam: 2.2 cm LVIDs: 2.7 cm Ao root diam: 3.1 cm FS: 40.6 % asc Aorta Diam: 3.4 cm IVSd: 1.1 cm Ao Arch Diam (Prox Trans): 2.7 cm LVPWd: 0.96 cm LV vu. diameter/BSA (cm/m^2): 2.3 LV sys. diameter/BSA (cm/m^2): 1.3 TAPSE: 2.4 cm Doppler Measurements & Calculations Ao V2 max: 137.2 cm/sec LVOT Max Artur: 124.2 cm/sec Ao V2 mean: 96.5 cm/sec LV V1 max P.2 mmHg Ao max P.5 mmHg LV V1 VTI: 21.7 cm Ao mean P.3 mmHg MIK(I,D): 3.5 cm2 Ao V2 VTI: 24.3 cm MIK(V,D): 3.6 cm2 sev ratio: 0.89 MIK indexed to BSA (cm^2/m^2): 1.7 MV E max artur: 91.4 cm/sec PA V2 max: 93.1 cm/sec MV A max artur: 56.9 cm/sec PA V2 mean: 64.5 cm/sec MV E/A: 1.6 PA mean P.9 mmHg Med Peak E' Artur: 6.2 cm/sec PA pr(Accel): 5.8 mmHg E/E' med: 14.7 Lat Peak E' Artur: 13.0 cm/sec E/E' lat: 7.0 E/e' average: 10.9 MV dec time: 0.16 sec Reading Physician:RODRÍGUEZ
== END ==
PROVIDERS: PCP Family Medicine; Visit Provider Family Medicine
DX: R01.1 Cardiac murmur, unspecified (principal); I10 Essential (primary) hypertension
CPT/HCPCS: 93306

== ENCOUNTER → 2017-09-26 07:09 | Outpatient (CLI) | payer OTHER, SELFPAY ==
--- NOTE | 2017-09-26 07:11 | DI.US.S_ITS ---
PROCEDURE: US ABDOMEN COMPLETE INDICATIONS: ELEVATED LIVER ENZYMES TECHNIQUE: Real-time scanning was performed of the abdominal and retroperitoneal organs, with image documentation. COMPARISON: [facility], CT, CT KIDNEY URETER BLADDER (KUB), 08/31/2017, 13:24. [facility], US, ABDOMEN COMPLETE, 02/24/2017, 10:48. FINDINGS: Liver: Liver is diffusely increased in echogenicity. No focal hepatic abnormalities identified. Normal hepatic size. Gallbladder: Surgically absent. Biliary ducts: Intrahepatic bile ducts are non-dilated. Extrahepatic bile duct caliber measures 5.1 mm. Normal is 6-7 mm or less in diameter, or 10 mm or less post-cholecystectomy. Pancreas: Visualized portions of the pancreas are sonographically normal. Spleen: Spleen is normal in size and homogeneous in echotexture. Kidneys: Kidneys are normal in size and echotexture. Right kidney measures 11.9 cm long; left kidney measures 10.9 cm long. No hydronephrosis or nephrolithiasis. No solid masses. Aorta: Visualized aorta is normal in caliber at less than 3 cm. Iliacs: Proximal common iliac arteries are normal in caliber at less than 2.5 cm. IVC: Intrahepatic inferior vena cava is patent. Miscellaneous: No free abdominal fluid. IMPRESSION: Increased hepatic echogenicity noted likely related to fatty infiltration of the liver but other sources of hepatocellular disease cannot be excluded. Recommend clinical correlation. Dictated by: Jose MATSON Interpreted: Wei Palencia MD on 09/26/2017 at 8:49 Approved by: Wei Palencia M.D. on 09/26/2017 at 15:15
== END ==
PROVIDERS: PCP Family Medicine; Visit Provider Family Medicine
DX: R74.8 Abnormal levels of other serum enzymes (principal); I10 Essential (primary) hypertension; R10.9 Unspecified abdominal pain
CPT/HCPCS: 76700

== ENCOUNTER → 2017-10-13 12:17 | Outpatient (CLI) | payer OTHER, SELFPAY ==
--- NOTE | 2017-10-13 12:18 | DI.US.S_ITS ---
PROCEDURE: US BREAST LT LIMITED COMPARISON: None. INDICATIONS: LEFT BREAST LUMP X 1 MONTH FINDINGS: IMPRESSION: Dictated by: Jacqueline Daley M.D. on 10/13/2017 at 11:48 Approved by: Jacquelien Daley M.D. on 10/13/2017 at 11:50
--- NOTE | 2017-10-13 12:21 | DI.US.S_ITS ---
ULTRASOUND OF LEFT BREAST: 10/13/2017 CLINICAL: Palpable left breast lump. No prior exams were available for comparison. Ultrasound of the left breast was performed on the area of interest. Wright scale images of the real-time examination were reviewed. IMPRESSION: NEGATIVE There is no sonographic evidence of malignancy. There is no abnormality seen in the left breast to correspond with the palpable abnormality, however, clinical followup is recommended. Return to annual mammogram screening schedule is recommended. Electronically Signed By: Jacqueline benavides/:10/13/2017 12:50:19 letter sent: Clinical Evaluation Ultrasound BI-RADS: 1 Negative
== END ==
PROVIDERS: PCP Family Medicine; Visit Provider Family Medicine
DX: R92.8 Other abnormal and inconclusive findings on diagnostic imaging of breast (principal); N64.4 Mastodynia; N63.20 Unspecified lump in the left breast, unspecified quadrant
CPT/HCPCS: 76642

== ENCOUNTER → 2017-10-21 08:54 | Outpatient (CLI) | payer OTHER, SELFPAY ==
--- NOTE | 2017-10-21 | DI.MG.S_ITS ---
UNILATERAL LEFT DIGITAL DIAGNOSTIC MAMMOGRAM 3D/2D: 10/21/2017 CLINICAL: Left lump. Baseline exam. Family history of breast cancer. No prior exams were available for comparison. The tissue of the left breast is extremely dense, which lowers the sensitivity of mammography. No significant masses, calcifications, or other findings are seen in the breast. IMPRESSION: INCOMPLETE: NEEDS ADDITIONAL IMAGING EVALUATION There is no abnormality seen in the left breast to correspond with the area of clinical concern, however, ultrasound is recommended. This exam was interpreted at Station ID: [id number]. NOTE: For mammograms, a report in lay terms will be sent to the patient. Approximately 15% of breast malignancies will not be visualized mammographically. In the management of a palpable breast mass, a negative mammogram must not discourage biopsy of a clinically suspicious lesion. Electronically Signed By: Karson berg/jessica:10/24/2017 07:44:13 Entry: - 10/24/2017 07:44:13 letter sent: Need Ultrasound ACR BI-RADS Category 0: Incomplete [id number]
== END ==
PROVIDERS: PCP Family Medicine; Visit Provider Family Medicine
DX: R92.8 Other abnormal and inconclusive findings on diagnostic imaging of breast (principal); N63.20 Unspecified lump in the left breast, unspecified quadrant; Z80.3 Family history of malignant neoplasm of breast
CPT/HCPCS: 77065; G0279